=== PATIENT | male | born 1975 | race African-American/Black ===

== ENCOUNTER 2017-06-14 04:13 | Emergency (ER) | payer OTHER ==
[~2017-06-14] VITALS: Ht 177.8 cm; Wt 77.2 kg
[2017-06-14] MEDS ORDERED: SODIUM CHLORIDE 0.9% 1,000ML IVBOLUS ONE (05:30)
[2017-06-14 05:35] LABS: HEMATOCRIT 42.4 % (39.2-51.8); HEMOGLOBIN 13.4 g/dL (13.7-18.0); WHITE BLOOD COUNT 8.3 x10^3/uL (3.4-10)
[2017-06-14 05:45] LABS: BLOOD UREA NITROGEN 20 mg/dL (7-18)
[2017-06-14 05:55] VITALS: BP 172/98
== END 2017-06-14 05:57 | disposition home or self-care (01) ==
LOC: ED 05:40
DX: J20.9 Acute bronchitis, unspecified (principal)
CPT/HCPCS: 36415; 71020; 80048; 82040; 85025; 93005; 96360; 99285; J7030